=== PATIENT | female | born 1990 | race Caucasian/White ===

== ENCOUNTER 2017-02-27 13:40 | Emergency (ER) | payer OTHER ==
[2017-02-27] MEDS ORDERED: SODIUM CHLORIDE 0.9% 1,000 ML IV ONE (13:46)
--- NOTE | 2017-02-27 13:49 | ED Physician Documentation ---
History of Present Illness - Stated complaint Stated Complaint: SYNCOPE - Chief complaint Chief Complaint: General - History obtained from History obtained from: Patient, EMS - Additonal information Additional information: 26-year-old at 11 weeks gestation, has a lot of issues with vomiting and this , last vomited yesterday. Poor oral intake today. Was at the grocery store and felt dizzy for about 10 seconds and had a near syncopal episode, she did go to ground but with no injury. No full loss of consciousness. No associated chest pain or trouble breathing. Review of Systems Constitutional: reports: Reviewed and negative. denies: Weight Loss Nose: denies: Rhinorrhea / runny nose, Congestion Cardiac: denies: Chest pain / pressure, Palpitations Respiratory: denies: Dyspnea, Cough PD PAST MEDICAL HISTORY - Present Medications Home Medications: Ambulatory Orders Medication Instructions Recorded Confirmed Pnv No.95/Ferrous Fum/Folic AC 1 tab DAILY 02/27/17 02/27/17 [ Multivitamin Tablet] - Allergies Allergies/Adverse Reactions: Allergies Allergy/AdvReac Type Severity Reaction Status Date / Time Penicillins Allergy Unknown Verified 02/27/17 13:46 PD ED PE NORMAL - Vitals Vital signs reviewed: Yes - General General: Alert and oriented X 3, No acute distress - HEENT HEENT: PERRL, EOMI - Neck Neck: Supple, no meningeal sign, No bony TTP - Cardiac Cardiac: RRR, No murmur - Respiratory Respiratory: No respiratory distress, Clear bilaterally - Abdomen Abdomen: Soft, Non tender - Extremities Extremities: No edema, No calf tenderness / cord - Neuro Neuro: Alert and oriented X 3, Normal speech - Psych Psych: Normal mood, Normal affect Results - Vitals Vitals: Vital Signs - 24 hr 02/27/17 02/27/17 13:42 13:57 Temperature 37 C Heart Rate 104 H Heart Rate [ 86 Sitting] Heart Rate [ 97 Standing] Heart Rate [ 82 Supine] Respiratory 20 Rate Blood Pressure 126/84 H Blood Pressure 103/77 [Sitting] Blood Pressure 110/74 [Standing] Blood Pressure 100/63 [Supine] O2 Saturation 100 Oxygen O2 Source Room air - EKG (time done) 1411 Rate: Rate (enter#) (87) Rhythm: NSR [place]: Normal Intervals: Normal ND QRS: Normal Ischemia: Normal ST segments Computer interpretation: Agree with computer - Labs Labs: Laboratory Tests 02/27/17 02/27/17 02/27/17 14:05 14:05 15:00 WBC 10.0 RBC 4.27 Hgb 11.8 L Hct 35.1 L MCV 82.1 MCH 27.6 MCHC 33.6 RDW 18.8 H Plt Count 171 MPV 9.5 Neut # 7.5 H Lymph # 1.8 [place] # 0.6 Eos # 0.1 Baso # 0.0 Absolute Nucleated RBC 0.00 Nucleated RBCs 0.0 Sodium 135 Potassium 3.6 Chloride 104 Carbon Dioxide 20 L Anion Gap 11.0 BUN 9 Creatinine 0.5 Estimated GFR (MDRD) 148 Glucose 77 Calcium 8.9 Total Bilirubin 0.4 AST 17 ALT < 10 L Alkaline Phosphatase 47 Total Protein 7.1 Albumin 3.6 Globulin 3.5 Albumin/Globulin Ratio 1.0 Lipase 38 Urine Color YELLOW Urine Clarity CLEAR Urine pH 6.0 Ur Specific [place] 1.010 Urine Protein NEGATIVE Urine Glucose (UA) NEGATIVE Urine Ketones 40 H Urine Occult Blood TRACE-LYSE Urine Nitrite NEGATIVE Urine Bilirubin NEGATIVE Urine Urobilinogen 0.2 (NORMAL) Ur Leukocyte Esterase NEGATIVE Ur Microscopic Review NOT INDICATED Urine Culture Comments NOT INDICATED PD MEDICAL DECISION MAKING - ED course ED course: 26-year-old woman in first trimester with a near syncopal episode. No associated chest pain or trouble breathing. She had negative orthostatics formally but did get symptomatic and feeling better after IV fluids. She did have ketones in her urine and bicarbonate was mildly low consistent with dehydration. EKG was unremarkable. The patient and family were counseled as to the diagnosis and need for followup. I counseled the patient with regard to signs and symptoms that would necessitate an urgent reevaluation in the emergency department. They understand they are welcome to return at any time if worse or if not improving as expected. This document was made in part using voice recognition software. While efforts are made to proofread this document, sound alike and grammatical errors may occur. Departure - Departure Disposition: 01 Home, Self Care Clinical Impression: Near syncope, Dehydration, First trimester Condition: Good Record reviewed to determine appropriate education?: Yes Instructions: ED Dehydration, ED Near Syncope Unkn Comments: Call your doctor to arrange a follow up appointment. Make the next available appointment. In the interim return anytime if worse or if new symptoms develop.
[2017-02-27 14:49] LABS: BASOPHILS % (AUTO) 0.2 %; EOSINOPHILS # (AUTO) 0.1 10^3/uL (0.0-0.7); EOSINOPHILS % (AUTO) 0.6 %; HCT - HEMATOCRIT 35.1 % (37.0-47.0); HGB - HEMOGLOBIN 11.8 g/dL (12.0-16.0); LYMPHOCYTES # (AUTO) 1.8 10^3/uL (1.5-3.5); LYMPHOCYTES % (AUTO) 18.2 %; MEAN CORPUSCULAR HEMOGLOBIN 27.6 pg (27.0-31.0); MEAN CORPUSCULAR HGB CONC 33.6 g/dL (32.0-36.0); MEAN CORPUSCULAR VOLUME 82.1 fL (81.0-99.0); MEAN PLATELET VOLUME 9.5 fL (7.9-10.8); MONOCYTES # (AUTO) 0.6 10^3/uL (0.0-1.0); MONOCYTES % (AUTO) 6.1 %; NEUTROPHILS # (AUTO) 7.5 10^3/uL (1.5-6.6); NEUTROPHILS % (AUTO) 74.9 %; RED BLOOD COUNT 4.27 10^6/uL (4.20-5.40); RED CELL DISTRIBUTION WIDTH 18.8 % (12.0-15.0)
[2017-02-27 15:00] LABS: BILIRUBIN,TOTAL 0.4 mg/dL (0.2-1.0); BUN - BLOOD UREA NITROGEN 9 mg/dL (6-20); CALCIUM 8.9 mg/dL (8.5-10.3); CARBON DIOXIDE - CO2 20 mmol/L (21-32); CHLORIDE 104 mmol/L (101-111); CREATININE 0.5 mg/dL (0.4-1.0); GFR - MDRD 148 (>89); GLUCOSE 77 mg/dL (70-100); LIPASE 38 U/L (22-51); POTASSIUM 3.6 mmol/L (3.5-5.0); SODIUM 135 mmol/L (135-145); TOTAL PROTEIN 7.1 g/dL (6.7-8.2)
[2017-02-27 15:19] LABS: BILIRUBIN,URINE NEGATIVE (NEGATIVE); UA CHARGE (STRIP ONLY) YES; UR CULTURE IF IND NOT INDICATED
[2017-02-27 15:25] VITALS: BP 102/70
== END 2017-02-27 15:32 | disposition home or self-care (01) ==
LOC: ED 13:40
DX: E86.0 Dehydration (principal); O26.891 Other specified pregnancy related conditions, first trimester; Z3A.11 11 weeks gestation of pregnancy; R55 Syncope and collapse
CPT/HCPCS: 36415; 80053; 81001; 81003; 83690; 85025; 87086; 93005; 93010; 96360; 99284

== ENCOUNTER 2017-09-30 15:19 | Emergency (ER) | payer OTHER ==
--- NOTE | 2017-09-30 15:22 | ED Physician Documentation ---
PD HPI FEMALE - Stated complaint Stated Complaint: FEMALE - History obtained from History obtained from: Patient - History of Present Illness Timing - onset: How many weeks ago (1) Timing - duration: Weeks (1-2) Timing - details: Gradual onset Associated symptoms: Vaginal pain, Other (rectal pain). No: Fever, Abdominal pain [employer] OPERATOR History: G (1), P (1) Recently seen: Surgery (she had vaginal delivery couple months ago with posterior tear that was sutured. Seemed to be healing okay but with pain the past week, and rectal pain, with some firm stools. Having pain increase in those areas the past week.) Review of Systems Constitutional: denies: Fever GI: reports: Constipation (firm but not hard stool). denies: Diarrhea : denies: Dysuria, Frequency PD PAST MEDICAL HISTORY - Past Surgical History Past Surgical History: No - Present Medications Home Medications: Ambulatory Orders Medication Instructions Recorded Confirmed Pnv No.95/Ferrous Fum/Folic AC 1 tab DAILY 02/27/17 09/30/17 [ Multivitamin Tablet] HYDROcod/ACETAM 5/325 [Moffit 5/325] 1 tab PO Q6H PRN #12 tablet 09/30/17 Hydrocortisone Acetate [Anucort-Hc] 25 mg RC DAILY #5 supp.rect 09/30/17 Lidocaine Ointment 5% [Xylocaine 1 applic TOP QID PRN #1 tube 09/30/17 Ointment 5%] Metronidazole [Flagyl] 500 mg PO BID #10 tablet 09/30/17 Mupirocin 1 applic TP TID #15 oint...g. 09/30/17 Polyethylene Glycol 3350 [Miralax] 17 gm PO BID #238 g 09/30/17 Sulfamethox/Trimeth 800/160 1 each PO BID #14 tablet 09/30/17 [Bactrim Ds 800/160] - Allergies Allergies/Adverse Reactions: Allergies Allergy/AdvReac Type Severity Reaction Status Date / Time Penicillins Allergy Unknown Verified 02/27/17 13:46 - Social History Does the pt smoke?: No Smoking Status: Never smoker Does the pt drink ETOH?: No Does the pt have substance abuse?: No - Immunizations Immunizations are current?: Yes PD ED PE NORMAL - Vitals Vital signs reviewed: Yes - General General: Alert and oriented X 3, Well developed/nourished - Abdomen Abdomen: Soft, Non tender - Rectal Rectal: Other (perirectal without abscess, swelling. The anal sphincter has several tears/fissures with some redness and some swelling in the inner sphincter area, without focal lump/hemorrhoid. Ther perineal area with closed sutured tear, with slight dehiscence at vaginal end of it. No stool impaction. ) - Back Back: No CVA TTP - Derm Derm: Warm and dry - Neuro Neuro: Alert and oriented X 3, No motor deficit, Normal speech Results - Vitals Vitals: Vital Signs - 24 hr 09/30/17 15:24 Temperature 36.6 C Heart Rate 93 Respiratory 18 Rate Blood Pressure 101/88 H O2 Saturation 97 Oxygen O2 Source Room air PD MEDICAL DECISION MAKING - ED course Complexity details: considered differential (some dehiscence with some swelling , not overt infection but presume some cellulitic infection. I do not feel any abscess pocket/fullness. ), d/w patient Departure - Departure Disposition: 01 Home, Self Care Clinical Impression: episiotomy dehiscence Anal sphincter tear Qualifiers: Encounter type: initial encounter Qualified Code(s): S31.831A - Laceration without foreign body of anus, initial encounter Condition: Stable Record reviewed to determine appropriate education?: Yes Instructions: ED Fissure Anal Ch, ED Wound Infec After Surgery Follow-Up: [facility] [Provider Group] [facility] [Provider Group] Prescriptions: HYDROcod/ACETAM 5/325 [Moffit 5/325] 1 tab PO Q6H PRN #12 tablet PRN Reason: Pain Hydrocortisone Acetate [Anucort-Hc] 25 mg RC DAILY #5 supp.rect Lidocaine Ointment 5% [Xylocaine Ointment 5%] 1 applic TOP QID PRN #1 tube PRN Reason: Pain Metronidazole [Flagyl] 500 mg PO BID #10 tablet Mupirocin 1 applic TP TID #15 oint...g. Polyethylene Glycol 3350 [Miralax] 17 gm PO BID #238 g Sulfamethox/Trimeth 800/160 [Bactrim Ds 800/160] 1 each PO BID #14 tablet Comments: Cool to lukewarm soaks couple times a day to help cleanse the wound area. The sutured part does not look completely healed towards the vaginal and and then there is sores or small tears around the rectal muscle as well. These may have some infection to them that keep them from healing. I would use mupirocin antibiotic ointment 2-3 times daily to the area and also oral antibiotics of Bactrim and Flagyl twice daily for the infection. For the inflammation at the rectal area, use the hydrocortisone suppository daily. This will also help lubricate the area and coated. He can use topical lidocaine to help reduce pain in particular before bowel movements and such. Use Tylenol or ibuprofen if needed for pain generally. You could add hydrocodone if needed but be careful that it may increase constipation. Add MiraLAX stool softener twice daily to ensure the stools are coming out soft. Cut back on the dose if they become too watery. 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 Discharge Date/Time: 09/30/17 16:18
[2017-09-30 15:28] VITALS: BP 101/88
[2017-09-30] MEDS ORDERED: ACETAMINOPHEN 325 MG TABLET PO STA (15:55)
[2017-09-30] MEDS ORDERED: LIDOCAINE OINTMENT 5% 35.44 GM TUBE TOP STA (15:55)
== END 2017-09-30 16:18 | disposition home or self-care (01) ==
LOC: ED 15:19
DX: O90.1 Disruption of perineal obstetric wound (principal); S31.831A Laceration without foreign body of anus, initial encounter; X58.XXXA Exposure to other specified factors, initial encounter
CPT/HCPCS: 99283; A9270